=== PATIENT | male | born 2000 | race Caucasian/White ===

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

== ENCOUNTER 2019-04-03 17:26 | Emergency (ER) | payer OTHER ==
--- NOTE | 2019-04-03 17:44 | ER Document Report ---
Doctor's Note Notes: 04/03/19 17:43 Patient was seen in conjunction with the nurse practitioner, please see her note correlate with mine. In short this pleasant 18-year-old male hit his head on a cabinet door. He sustained a scalp laceration, they were unable to get it stop bleeding. His immunizations are up-to-date. On exam, the patient has a linear and gold 3 cm laceration, just behind the hairline, left frontal scalp. With traction there is a slight increase in bleeding. Given its location, I believe that this wound would be most conducive to closure. It is mostly superficial, but this would be in an effort to get it to stop bleeding, as the scalp is very vascular. Patient is amenable to this plan. Please see the nurse prac titioner's note in regards to this procedure.
[2019-04-03 17:46] VITALS: BP 158/92
--- NOTE | 2019-04-03 17:48 | ER Document Report ---
ED Head/Face/Scalp Injury - General Chief Complaint: Head Injury with LOC Stated Complaint: HEAD INJURY Time Seen by Provider: 04/03/19 17:32 Mode of Arrival: Ambulatory Information source: Patient TRAVEL OUTSIDE OF THE [place] IN LAST 30 DAYS: No - HPI Patient complains to provider of: Laceration - 3 cm scalp laceration left frontal scalp just behind the hairline Injury to: Forehead Location of problem: Forehead Occurred: Just prior to arrival Where: Home, Indoors Timing: Still present Context: Laceration Loss consciousness: No loss of consciousness Remembers: Injury, Coming to hospital - Related Data Allergies/Adverse Reactions: No Known Allergies Allergy (Verified 04/03/19 17:31) Past Medical History - General Information source: Patient - Social History Smoking Status: Never Smoker Frequency of alcohol use: None Drug Abuse: None 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 Lives with: Family Family History: Reviewed & Not Pertinent Patient has suicidal ideation: No Patient has homicidal ideation: No - Past Medical History Cardiac Medical History: Reports: None Pulmonary Medical History: Reports: None EENT Medical History: Reports: None Neurological Medical History: Reports: None Endocrine Medical History: Reports: None Renal/ Medical History: Reports: None Malignancy Medical History: Reports None GI Medical History: Reports: None Musculoskeletal Medical History: Reports None Skin Medical History: Reports None Psychiatric Medical History: Reports: None Traumatic Medical History: Reports: None Infectious Medical History: Reports: None Past Surgical History: Reports: Hx Oral Surgery - [place] teeth - Immunizations Immunizations up to date: Yes Hx Diphtheria, Pertussis, Tetanus Vaccination: Yes Review of Systems - Review of Systems Constitutional: No symptoms reported EENT: No symptoms reported Cardiovascular: No symptoms reported Respiratory: No symptoms reported Gastrointestinal: No symptoms reported Genitourinary: No symptoms reported Male Genitourinary: No symptoms reported Musculoskeletal: No symptoms reported Skin: Other - 3 cm scalp laceration left frontal scalp just behind the hairline Hematologic/Lymphatic: No symptoms reported Neurological/Psychological: No symptoms reported -: Yes All other systems reviewed and negative Physical Exam - Vital signs Vitals: Temp Pulse Resp BP Pulse Ox 97.8 F 67 16 158/92 H 100 04/03/19 17:43 04/03/19 17:43 04/03/19 17:43 04/03/19 17:43 04/03/19 17:43 Interpretation: Normal - General General appearance: Appears well, Alert - HEENT Head: Open wounds - 3 cm scalp laceration left frontal scalp just behind the hairline Eyes: Normal Pupils: PERRL Ears: Normal External canal: Normal Tympanic membrane: Normal Sinus: Normal Nasal: Normal Mouth/Lips: Normal Mucous membranes: Normal Pharynx: Normal Neck: Normal - Respiratory Respiratory status: No respiratory distress Chest status: Nontender Breath sounds: Normal Chest palpation: Normal - Cardiovascular Rhythm: Regular Heart sounds: Normal auscultation Murmur: No - Abdominal Inspection: Normal Distension: No distension Bowel sounds: Normal Tenderness: Nontender Organomegaly: No organomegaly - Back Back: Normal, Nontender - Extremities General upper extremity: Normal inspection, Nontender, Normal color, Normal ROM, Normal temperature General lower extremity: Normal inspection, Nontender, Normal color, Normal ROM, Normal temperature, Normal weight bearing. 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 Patient tolerated well and patient was discharged home with his family. Patient was given instructions of care of the wound and to follow-up with his doctor for staple removal in 5 days and to follow-up with the BAS on Monday for his elevated blood pressure. Patient states he had just drank an energy drink just before coming to the emergency room. - Vital Signs Vital signs: Temp Pulse Resp BP Pulse Ox 97.8 F 67 16 158/92 H 100 04/03/19 17:43 04/03/19 17:43 04/03/19 17:43 04/03/19 17:43 04/03/19 17:43 Procedures - Laceration/Wound Repair Left Head Time completed: 17:49 Wound length (cm): 3 Wound's Depth, Shape: Superficial, Irregular Laceration pre-procedure: Sterile PPE donned, Sterile drapes applied, Shur-Clens applied Anesthetic type: Other - 0 Volume Anesthetic (mLs): 0 Wound explored: No foreign body removed Irrigated w/ Saline (mLs): 25 Wound Repaired With: [place] Number of Sutures: 3 Post-procedure NV exam normal: Yes Complications: No Discharge - Discharge Clinical Impression: Scalp laceration Qualifiers: Encounter type: initial encounter Qualified Code(s): S01.01XA - Laceration without foreign body of scalp, initial encounter Condition: Stable Disposition: HOME, SELF-CARE Additional Instructions: Scalp Laceration A scalp laceration requires little care. Dressings are applied only if severe bleeding or a large flap are present. Usually, once the cut is sutured, you can ignore it. Simply comb the hair over top of it to hide the stitches and go about your usual routine. You can shampoo your hair as needed starting tomorrow. If you need to wear a special hat or protective helmet for work, be careful that it doesn't press on the area. If crusting is bothersome, you can soften the crusts with Polysporin ointment, then shampoo. Infection in a scalp laceration is rare. If any signs of infection occur (swelling, redness, increasing tenderness, red streaks, tender lumps in the neck on the side of the laceration, or fever), see the doctor immediately. HIGH BLOOD PRESSURE, NOT TREAT: When your blood pressure was taken today it was elevated. Today's reading was ___158/92 . We do not think you need to have your blood pressure treated today. Sometimes, stress or illness causes a temporary elevation of your blood pressure. We suggest that you get your blood pressure measured again during the next few days to see if this elevated blood pressure is more than a temporary abnormality. If your blood pressure is greater than 150/90 on each occasion, you must have treatment. Some simple things you can do to help are: If you have blood pressure medicine but aren't using it regularly, start taking it again. Get some aerobic exercise for at least 20 minutes on a daily basis. (See your doctor before beginning a new exercise program.) Eat a low-fat diet. Lose excess weight. Avoid salty foods and avoid adding salt to any of the foods you eat. Avoid diet pills, decongestants, "energizing" herbs, and other medicines that elevate blood pressure. If left untreated, hypertension greatly enhances your risk for developing heart disease and strokes. Please don't ignore this problem. SOAP CLEANSING: Gently wash the wound daily using a mild soap (like Ivory, Phisoderm, Neutrogena). Use warm water, rubbing gently until all debris, ooze, and crusting have been washed from the wound. Allow to dry briefly (about 10 minutes) after cleaning. Repeat this cleansing at least three times a day for the first two days and then once or twice a day. ANTIBIOTIC OINTMENT PROTECTION: Your wounds are such that dressing them is not practical or optional. After cleansing, you should apply a thin coating of antibiotic ointment (Bacitracin, not Neosporin) to the wounds at least three times daily. This lessens infection risk, and may decrease the amount of scarring. Use a q-tip or dull butter knife, not your finger, to apply this ointment. Any debris or ooze which builds up in the ointment should be gently rubbed off with a sterile gauze pad. Harder crusting may need to be gently scrubbed off with a clean wash cloth with soap and warm water, perhaps applying a warm, wet wash cloth to the wound for ten minutes first. Development of redness, severe itching, or blistering may mean allergy to the ointment. See the doctor. FOLLOW-UP CARE: 3____ days for an infection check and dressing change. Your cali should be removed in __5__ days. To facilitate a timely removal of your type of, you may return to the Emergency Department at [facility]. You do not need to call for an appointment, but the best time to come in for suture removal is early in the morning. If you have been referred to another physician for follow-up care, call that physicians office for an appointment as you were instructed. If you experience a significant change in your laceration, or if you are concerned there may be an infection (swelling, redness, drainage, increasing tenderness, red streaks, tender lumps in the armpit or groin above the laceration, or fever), return to the Emergency Department immediately re-evaluation. Follow-up with your doctor to get cali removed in 5 days also please recheck your blood pressure with your BAS on Monday Forms: Elevated Blood Pressure
== END 2019-04-03 17:49 | disposition home or self-care (01) ==
LOC: ER 17:26
DX: S01.01XA Laceration without foreign body of scalp, initial encounter (principal); W22.8XXA Striking against or struck by other objects, initial encounter; Y92.009 Unspecified place in unspecified non-institutional (private) residence as the place of occurrence of the external cause
CPT/HCPCS: 99282

== ENCOUNTER 2019-04-08 17:10 | Emergency (ER) | payer OTHER ==
[2019-04-08 17:16] VITALS: BP 167/97
--- NOTE | 2019-04-08 18:03 | ER Document Report ---
HPI - HPI Time Seen by Provider: 04/08/19 17:55 Pain Level: Denies Context: Patient is a 18-year-old male who presents emergency department with a chief complaint of staple removal. Patient reports he was seen here on April 03 and had 3 cali placed to the top of his head. Patient reports there has been no excessive redness, swelling or drainage from the site. Patient denies headache or complaint. - REPRODUCTIVE Reproductive: DENIES: : Past Medical History - General Information source: Patient - Social History Smoking Status: Never Smoker Lives with: Family Family History: Reviewed & Not Pertinent Patient has suicidal ideation: No Patient has homicidal ideation: No - Past Medical History Cardiac Medical History: Reports: None Pulmonary Medical History: Reports: None EENT Medical History: Reports: None Neurological Medical History: Reports: None Endocrine Medical History: Reports: None Renal/ Medical History: Reports: None. Denies: Hx Peritoneal Dialysis Malignancy Medical History: Reports None GI Medical History: Reports: None Musculoskeletal Medical History: Reports None Skin Medical History: Reports None Psychiatric Medical History: Reports: None Traumatic Medical History: Reports: None Infectious Medical History: Reports: None Past Surgical History: Reports: Hx Oral Surgery - [place] teeth - Immunizations Immunizations up to date: Yes Hx Diphtheria, Pertussis, Tetanus Vaccination: Yes Vertical Provider Document - CONSTITUTIONAL Agree With Documented VS: Yes Exam Limitations: No Limitations General Appearance: No Apparent Distress - INFECTION CONTROL TRAVEL OUTSIDE OF THE [place] IN LAST 30 DAYS: No - HEENT HEENT: Atraumatic, Normocephalic, PERRLA Notes: 3 cali noted to the top of the left head. This is located right above the hairline. There is no swelling, redness, hematoma noted. The wound appears to be healing well and appropriately. Course - Re-evaluation Re-evalutation: 04/08/19 18:16 3 cali removed from the top of the left side of the head near the hairline. There is no drainage. Bacitracin was placed. Patient asymptomatic and discharged home. - Vital Signs Vital signs: Temp Pulse Resp BP Pulse Ox 97.6 F 87 16 167/97 H 100 04/08/19 17:14 04/08/19 17:14 04/08/19 17:14 04/08/19 17:14 04/08/19 17:14 Discharge - Discharge Clinical Impression: Removal of staple Condition: Stable Disposition: HOME, SELF-CARE Additional Instructions: *Today you are seen in the emergency department for a staple removal. Your head wound look like it was healing well and the 3 cali were removed. There are no current signs of infection. This area may continue to be tender over the next few days. Use Tylenol and ibuprofen as needed. Staple Removal Your cali have been removed. Please follow the care instructions the doctor/nurse practitioner has outlined for you. Unless instructed otherwise, you may get the wound wet and you do not need to continue bandaging it. You may begin to return to regular activities, but remember that it takes the inner tissues up to six weeks to fully heal. Therefore, do not subject the wound to significant forces or stress as it may re-open. See the doctor immediately if any signs of infection occur such as swelling, redness, drainage of pus, increasing tenderness, red streaks, tender lumps in the armpit or groin above the laceration, or fever. Unless you are instructed otherwise, you should not need to be seen again for any further evaluation of your wound.
== END 2019-04-08 18:22 | disposition home or self-care (01) ==
LOC: ER 17:10
DX: S01.91XD Laceration without foreign body of unspecified part of head, subsequent encounter (principal); X58.XXXD Exposure to other specified factors, subsequent encounter